=== PATIENT | male | born 1965 | race Caucasian/White ===

== ENCOUNTER 2016-10-01 11:43 | Emergency (ER) | payer SELFPAY ==
[~2016-10-01 11:43] MED LIST: ALBUTEROL IN200 PUFF INH; ASPIR 8181 MG PO; COLACE100 MG PO; COREG6.25 MG PO; FISH OIL 1,0001 EACH PO; HYDROCODON-ACE1 EAC4 PO; LANTUS100 UNIT/1 SQ; LASIX40 MG PO; MAGNESIUM OXID400 MG PO; NEURONTIN300 MG PO; NITROGLYCERIN0.4 MG SL; POTASSIUM CHLO10 ME1 PO; SYNTHROID200 MCG PO; SYNTHROID50 MCG PO; TRICOR145 MG PO; ZESTRIL10 MG PO
[2016-10-01 12:26] LABS: BASO % 0.5 % (0.2-1.2); EOS # 0.1 10_X3_uL (0.0-0.5); EOS % 3.3 % (0.8-7.0); GRAN # 2.6 10_X3_uL (1.8-5.4); GRAN % 61.3 % (34.0-67.9); HEMATOCRIT 32.5 % (40-51); HEMOGLOBIN 10.2 g/dL (13.7-17.5); LYMPH # 1.2 10_X3_uL (1.3-3.6); LYMPH % 28.8 % (21.8-53.1); MEAN CORPUSCULAR HEMOGLOBIN 30.2 pg (27.0-33.0); MEAN CORPUSCULAR HGB CONC 31.4 g/dL (32.0-36.0); MEAN CORPUSCULAR VOLUME 96.2 fL (79-92); MEAN PLATELET VOLUME 8.6 fl (7.5-11.5); MONO # 0.3 10_X3_uL (0.3-0.8); MONO % 6.1 % (5.3-12.2); PLATELET COUNT 167 x10_3/uL (163-337); RED BLOOD COUNT 3.38 x10_6/uL (4.6-6.1); RED CELL DISTRIBUTION WIDTH 14.9 % (11.6-14.4); WHITE BLOOD COUNT 4.3 x10_3/uL (4.2-9.1)
[2016-10-01 12:40] LABS: PARTIAL THROMBOPLASTIN TIME 28.5 SECONDS (21.3-29.3); PROTHROMBIN TIME (PATIENT) 10.3 SECONDS (9.9-11.1)
== END 2016-10-01 13:40 | disposition home or self-care (01) ==
LOC: ER 11:43
PROVIDERS: Emergency Medicine
DX: I50.9 Heart failure, unspecified (principal); E66.01 Morbid (severe) obesity due to excess calories; J44.9 Chronic obstructive pulmonary disease, unspecified; E11.9 Type 2 diabetes mellitus without complications; E78.5 Hyperlipidemia, unspecified; E03.9 Hypothyroidism, unspecified; Z99.81 Dependence on supplemental oxygen; Z88.1 Allergy status to other antibiotic agents; R63.5 Abnormal weight gain; Z79.899 Other long term (current) drug therapy; Z79.4 Long term (current) use of insulin
CPT/HCPCS: 36415; 71010; 82550; 82553; 83880; 85025; 85610; 85730; 93005; 96374; 99070; 99284; 99285-25